=== PATIENT | male | born 1985 | race Caucasian/White ===

== ENCOUNTER 2016-10-23 10:42 | Emergency (ER) | payer OTHER ==
[2016-10-23] MEDS ORDERED: TETANUS/DIPHTHERIA/PERTUSSIS 0.5 ML SYRINGE IM ONE ×2 (10:55)
[2016-10-23] MEDS ORDERED: AMOX/CLAV 875 MG/125 MG TABLET PO STA (12:19)
[2016-10-23] MEDS ORDERED: ONDANSETRON ODT 4 MG TABLET TL STA (12:19)
[2016-10-23] MEDS ORDERED: AMOX/CLAV 875 MG/125 MG TABLET PO ONE (12:29)
[2016-10-23] MEDS ORDERED: ONDANSETRON ODT 4 MG TABLET ONE (12:29)
== END 2016-10-23 12:43 | disposition home or self-care (01) ==
DX: S61.451A Open bite of right hand, initial encounter (principal); W54.0XXA Bitten by dog, initial encounter; Z23 Encounter for immunization
CPT/HCPCS: 73130; 90471; 90715; 99283; A9270; Q0162

== ENCOUNTER 2020-02-28 06:52 | Day surgery (SDC) | payer OTHER ==
[2020-02-28] MEDS ORDERED: fentaNYL 250 MCG/5 ML VIAL IVP ONE (06:53)
[2020-02-28] MEDS ORDERED: MIDAZOLAM 2 MG/2 ML VIAL IVP ONE (06:53)
[2020-02-28] MEDS ORDERED: LIDO GARGLE 30 ML BOTTLE TOP ONE (06:53)
[2020-02-28] MEDS ORDERED: LACTATED RINGERS 1,000 ML IV ONE (07:30)
[2020-02-28 09:32] VITALS: BP 124/77
== END 2020-02-28 06:53 | disposition home or self-care (01) ==
LOC: SDS 06:52
PROVIDERS: ATTEND Internal Medicine Gastroenterology
PROC: 0DB78ZX Excision of Stomach, Pylorus, Via Natural or Artificial Opening Endoscopic, Diagnostic (ICD-10-PCS; principal; 2020-02-28 08:15)
PROC: 0DBE8ZX Excision of Large Intestine, Via Natural or Artificial Opening Endoscopic, Diagnostic (ICD-10-PCS; 2020-02-28 08:15)
DX: K58.0 Irritable bowel syndrome with diarrhea (principal); K21.9 Gastro-esophageal reflux disease without esophagitis; K31.9 Disease of stomach and duodenum, unspecified; G47.30 Sleep apnea, unspecified; F41.9 Anxiety disorder, unspecified; F43.10 Post-traumatic stress disorder, unspecified; Z79.899 Other long term (current) drug therapy
CPT/HCPCS: 43239; 45380; A9270; J3010; J7120

== ENCOUNTER 2021-09-04 11:40 | Outpatient (CLI) | payer OTHER ==
--- NOTE | 2021-09-04 17:01 | MRI Report ---
PROCEDURE: Brain W/O INDICATIONS: MIGRAINES, TBI, DYSTONIC TICS TECHNIQUE: Noncontrast axial T1 spin echo, axial T2 fast spin echo, sagittal and axial FLAIR, coronal T2 fast sp in echo, axial gradient echo, axial diffusion and ADC through the brain. COMPARISON: None. FINDINGS: Image quality: Excellent. CSF Spaces: Basal cisterns are patent. No extra-axial fluid collections. Ventricles are normal in size and shape. Brain: No intracranial masses or hemorrhage. Byers/white matter interface is normal. Brainstem appe ars normal. Diffusion-weighted images demonstrate no acute ischemic insult. No chronic ischemic ins ults. Normal intravascular flow voids are present. Skull and face: Calvarium has normal marrow signal. Orbits appear normal. Sinuses: Sinuses and mastoids are clear. IMPRESSION: No acute intracranial disease process. 2. No abnormal intracranial mass or mass effect. 3. No areas of acute or chronic infarction. Reviewed by: Varsha Rai MD, PhD on 09/04/2021 5:00 PM PST Approved by: Varsha Rai MD, PhD on 09/04/2021 5:00 PM PST Station ID: [id number]
--- NOTE | 2021-09-04 20:10 | MRI Report ---
PROCEDURE: Cervical Spine W/O INDICATIONS: MIGRAINES, TBI, DYSTONIC TICS TECHNIQUE: Noncontrast sagittal T1 spin echo and T2 fast spin echo, sagittal STIR, foraminal oblique sagittal T2 fast spin echo, and axial gradient echo or T2 fast spin echo through the cervical spine. COMPARISON: None. FINDINGS: Image quality: Excellent. Alignment and Curvature: There is normal bony alignment. Bone Marrow: Marrow demonstrates normal overall signal. Spinal Cord: Visualized spinal cord has normal size and signal. No cerebellar tonsillar herniation. Paraspinous Soft Tissues: No paravertebral masses. Prevertebral soft tissues are normal in thicknes s. Discs: Minimal desiccation is present at C3-4, C4-5, C5-6. C2-C3: Minimal disc bulge without spinal stenosis. Mild right foraminal narrowing with uncovertebral hypertrophy. C3-C4: Minimal disc bulge without spinal stenosis. Mild right foraminal narrowing with uncovertebra l hypertrophy. C4-C5: No disc bulge, spinal stenosis or foraminal narrowing. Mild uncovertebral hypertrophy. C5-C6: Minimal disc bulge without spinal stenosis or foraminal narrowing. C6-C7: Minimal disc bulge without spinal stenosis or foraminal narrowing. C7-T1: Minimal disc bulge without spinal stenosis. Mild left foraminal narrowing. IMPRESSION: 1. Early degenerative changes noting multilevel minimal disc bulges. 2. No spinal stenosis. 3. Mild right foraminal narrowing at C2-3 and C3-4 secondary to uncovertebral arthropathy. Reviewed by: Macy Laurent MD on 09/04/2021 8:09 PM PST Approved by: Macy Laurent MD on 09/04/2021 8:09 PM PST Station ID: [id number]
== END 2021-09-04 11:41 | disposition home or self-care (01) ==
LOC: DI 11:40
PROVIDERS: ATTEND Psychiatry & Neurology Neurology
DX: G24.8 Other dystonia (principal); M50.31 Other cervical disc degeneration, high cervical region; M48.02 Spinal stenosis, cervical region